=== PATIENT | male | born 1945 | race Caucasian/White ===

== ENCOUNTER 2018-06-07 14:39 | Emergency (ER) | payer MEDICARE ==
[~2018-06-07] VITALS: Ht 175.3 cm; Wt 109.1 kg
[2018-06-07 16:38] VITALS: BP 162/87
== END 2018-06-07 16:49 | disposition home or self-care (01) ==
LOC: ED 14:39
DX: K59.00 Constipation, unspecified (principal); I10 Essential (primary) hypertension; F17.290 Nicotine dependence, other tobacco product, uncomplicated